=== PATIENT | male | born 1955 | race Caucasian/White ===

== ENCOUNTER → 2017-04-10 | Outpatient (CLI) | payer BC | LOC: BRMIMAGING 14:16 | PROVIDERS: ATTEND Internal Medicine Rheumatology | DX: M1A.00X0 Idiopathic chronic gout, unspecified site, without tophus (tophi) (principal); M20.12 Hallux valgus (acquired), left foot; M20.11 Hallux valgus (acquired), right foot; M19.072 Primary osteoarthritis, left ankle and foot; M19.071 Primary osteoarthritis, right ankle and foot; S92.901A Unspecified fracture of right foot, initial encounter for closed fracture | CPT/HCPCS: 73630-PO ==